=== PATIENT | male | born 1965 | race African-American/Black ===

== ENCOUNTER 2020-07-21 03:28 | Inpatient (IN) ==
[2020-07-21] MEDS ORDERED: SODIUM CHLORIDE 0.9% 1000ML 1,000 ML IV ONE ×2 (03:44→04:56)
[2020-07-21] MEDS ORDERED: ACETAMINOPHEN 500 MG TAB PO STA (03:47)
--- NOTE | 2020-07-21 03:49 | Emergency Department Note ---
Impression & Plan Fever, Acute UTI (urinary tract infection), Immunocompromised ED Provider Note Name: LUCHO RANGEL Age: 54 Sex: M Arrives Via: Ambulance Informant: Patient, ED Provider: Andrew Mullins MD Chief Complaint: Fever Impression: Fever Acute UTI Immunocompromised Medical Decision Makin yr old male with bladder CA s/p resection and on chemo with bilateral nephrostomy tubes as well as history HTN, DMII. He has had fevers for the last day now, is dehydrated appearing and ill appearing. Fluid resus with 2 L NSS bolus as well as empiric abx after cultures obtained. He was given zosyn/vanco. HR coming down and BP&Lactate OK. He has no abdominal TTP nor evidence meningitis. Lungs are clear and CXR OK. UA from nephrostomy concerning for infection. Hospitalist in to evaluate further. Triage/Nursing Notes reviewed by Me Additional history obtained from Differentials:Viral syndrome, otitis, pharyngitis, pneumonia, influenza, meningitis, urinary tract infection, sepsis, bacteremia, as well as other pat hologies. Vital Signs: reviewed and remarkable for fever, tachy Interventions: NSS bolus 2L IV, Tylenol PO, ZOsyn IV, Vanco IV Labs:Reviewed and remarkable for WBC 15 Imaging:X ray results are stated below per my interpretation: Chest: 1 view: No infiltrate, no effusion, normal cardiac border. EKG:Per My Interpretation: Indication Sepsis: Sinus Tach 117 bpm, qtc 451. No Ectopy. No Ischemia. No previous for comparison Cardiac/Tele Monitoring: Cardiac Monitoring: An Order was placed for continuous cardiac monitoring. The monitor shows a rate of 110 with a sinus tachy rhythm. Consults:Dr Page WILLIS Hospitalist Plan: Disposition:Hospitalization. Condition: Good History of Present Illness:54 yr old male arrives for evaluation of fever. Patient with known bladder CA s/p bladder tumor resection (via cysto) last week and chemo over the last week. He has bilateral nephrostomy tubes in place as well. He notes he was feeling well until yesterday morning when he developed fevers and chills. Associated with nausea, fatigue and weakness. Worsening throughout the day. Worse with exertion, better with rest. Percocet helps with body aches and pains. He went to [facility] earlier in evening and due to issues with accessing port he d/c'd himself and came via EMS to this ED for further evaluation. States currently pain is control but that he feels very tired. Notes that he started having some bloody nephrostomy fluid this evening after moving around a bunch. He has been having blood in urine on and off for several days as well. Denies chest pain, sob, syncope, headache, neck stiffness, abdominal pain, leg swelling, nor other symptoms. No trauma nor injuries. He has his cancer treatment in [place]. ROS: See above HPI for pertinent positives & negatives. A total of 10 systems reviewed and were otherwise negative. Past Medical History:HTN, DMII, Bladder CA Past Surgical History:Thumb surgery, nephrostomy tubes, bladder tumor resection Family History:DMII Social History:Lives with , employed, non-smoker Home Medications:amlodipine, diazepam, lisinopril, zofran, oxybutynin, percocet, flomax, tizanidine Allergies:NKDA Vitals:Blood Pressure: 135/89, Pulse 115, RR 22, T 38.1C, O2 97% on RA Physical Exam: GENERAL: Patient is tired and ill appearing and in mild distress. Dehydrated appearing EYES: No scleral icterus, unremarkable pupils. ENT: Mucous membranes DRy, no nasal congestion. NECK: No masses appreciated, nomeningismus, trachea is midline. CHEST: Port right upper chest no swelling nor eythema RESPIRATORY: No dyspnea. Clear to auscultation and equal bilaterally. No wheeze, no rhonchi. CARDIOVASCULAR: Tachy.No murmurs, rubs, gallops appreciated. GASTROINTESTINAL: Abdomen soft, non-tender, no peritonitis.Bowel sounds positive.No masses appreciated. BACK: No midline tenderness, bilateral nephrostomy tubes EXTREMITIES: Normal motion all extremities, no cyanosis, no edema. NEUROLOGIC: Alert and oriented, no acute motor or sensory deficits, no focal weakness, cranial nerves grossly intact. SKIN: No rash, no jaundice, no diaphoresis. PSYCH: Appropriate GCS: 15 ED Course: Times/Reassessments: Improvement in symptoms and HR with fluids. Agreeable to hospitalization Andrew Mullins MD Past Med/Surg History Social History Smoking Status: Never smoker Preferred Language: Citizen Of [place] Allergies Allergies Allergy/AdvReac Type Severity Reaction Status Date / Time Iodinated Contrast Media Allergy Severe Unknown Verified 07/21/20 05:23 Home Meds Home Medications Medication Instructions Recorded Confirmed amlodipine 10 mg PO DAILY 07/21/20 07/21/20 diazepam 2.5 mg SC BID PRN 07/21/20 07/21/20 lisinopril 40 mg PO DAILY 07/21/20 07/21/20 metoprolol tartrate 25 mg PO DAILY 07/21/20 07/21/20 ondansetron HCl 8 mg PO BID 07/21/20 07/21/20 oxybutynin chloride 10 mg PO DAILY 07/21/20 07/21/20 oxycodone-acetaminophen 1 tab PO Q4 07/21/20 07/21/20 tamsulosin 0.4 mg PO BID 07/21/20 07/21/20 tizanidine 4 mg PO HS 07/21/20 07/21/20 Results & Data (ED) Vital Signs Vital Signs - 24 hr 07/21/20 03:32 07/21/20 03:33 07/21/20 05:05 Temperature 38.1 C H Temperature Source Oral Pulse Rate 106 H 115 H Pulse Rate [Apical] 93 H Pulse Rhythm Regular Pulse Rhythm [Apical] Regular Pulse Strength Normal Respiratory Rate 13 22 16 Respiratory Effort / Characteristics Non-Labored Spontaneous Non-Labored Spontaneous Respiratory Depth Normal Normal Respiratory Pattern Regular Blood Pressure 135/89 135/89 Blood Pressure [Left Arm] 134/80 Blood Pressure Mean 104 104 Blood Pressure Mean [Left Arm] 98 Blood Pressure Position Sitting Blood Pressure Position [Left Arm] Lying Pulse Oximetry 97 97 Oxygen Delivery Method Room Air Room Air Sepsis Recent Fever Within 48 Hours Yes Sepsis New/Unexplained Change in Mental Status N/A Sepsis Action Taken by Nursing Physician Notified Laboratory Data Result diagrams: 07/21/20 04:03 07/21/20 04:03 Lab Results 07/21/20 07/21/20 07/21/20 Range/Units 04:03 04:03 04:03 WBC 15.22 H (4.8-10.8) K/uL RBC 4.10 L (4.7-6.1) M/uL Hgb 12.2 L (14.0-18.0) g/dL Hct 34.7 L (42-52) % MCV 84.6 (80-100) fL MCH 29.8 (25-34) pg MCHC 35.2 (32-36) g/dL RDW Std Deviation 45.7 (36.4-46.3) fL RDW Coeff of Lamar 14.7 H (11.5-14.5) % Plt Count 218 (130-400) K/uL MPV 8.9 (7.4-10.4) fL Immature Gran % (Auto) 0.2 % Neut % (Auto) 93.2 % Lymph % (Auto) 5.5 % [place] % (Auto) 0.9 % Eos % (Auto) 0.1 % Baso % (Auto) 0.1 % Neut # (Auto) 14.20 H (1.4-6.5) K/uL Lymph # (Auto) 0.83 L (1.2-3.4) K/uL [place] # (Auto) 0.14 (0.11-0.59) K/uL Eos # (Auto) 0.01 (0-0.5) K/uL Baso # (Auto) 0.01 (0-0.2) K/uL Immature Gran # (Auto) 0.03 H (0.00-0.02) K/uL PT 10.4 (9.0-12.0) Seconds INR 1.0 (0.9-1.1) Sodium (136-145) mmol/L Potassium (3.5-5.1) mmol/L Chloride (98-107) mmol/L Carbon Dioxide (21-32) mmol/L Anion Gap (3-11) BUN (7-18) mg/dl Creatinine (0.6-1.4) mg/dl Est Cr Clr Drug Dosing ml/min Est GFR ( Amer) Est GFR (Non-Af Amer) BUN/Creatinine Ratio (10-20) Glucose (70-99) mg/dl Lactate 0.9 (0.4-2.0) mmol/L Calcium (8.5-10.1) mg/dl Magnesium (1.8-2.4) mg/dl Total Bilirubin (0.2-1) mg/dl Direct Bilirubin (0-0.2) mg/dl AST (15-37) U/L ALT (12-78) U/L Alkaline Phosphatase (45-117) U/L Troponin I (0-0.045) ng/ml Total Protein (6.4-8.2) gm/dl Albumin (3.4-5.0) gm/dl Lipase (73-393) U/L Procalcitonin (0-0.5) ng/ml Urine Color Urine Appearance (Clear) Urine pH (4.5-7.5) Ur Specific [place] (1.000-1.030) Urine Protein (Negative) Urine Glucose (UA) (Negative) Urine Ketones (Negative) Urine Blood (Negative) Urine Nitrite (Negative) Urine Bilirubin (Negative) Urine Urobilinogen (Negative) Ur Leukocyte Esterase (Negative) Urine RBC (0-4) /hpf Urine WBC (0-5) /hpf Ur Epithelial Cells (0-5) /lpf Urine Bacteria (Negative) COVID-19 Eval Order SARS-CoV-2, RNA, NAAT (NEGATIVE) 07/21/20 07/21/20 07/21/20 Range/Units 04:03 04:03 04:37 WBC (4.8-10.8) K/uL RBC (4.7-6.1) M/uL Hgb (14.0-18.0) g/dL Hct (42-52) % MCV (80-100) fL MCH (25-34) pg MCHC (32-36) g/dL RDW Std Deviation (36.4-46.3) fL RDW Coeff of Lamar (11.5-14.5) % Plt Count (130-400) K/uL MPV (7.4-10.4) fL Immature Gran % (Auto) % Neut % (Auto) % Lymph % (Auto) % [place] % (Auto) % Eos % (Auto) % Baso % (Auto) % Neut # (Auto) (1.4-6.5) K/uL Lymph # (Auto) (1.2-3.4) K/uL [place] # (Auto) (0.11-0.59) K/uL Eos # (Auto) (0-0.5) K/uL Baso # (Auto) (0-0.2) K/uL Immature Gran # (Auto) (0.00-0.02) K/uL PT (9.0-12.0) Seconds INR (0.9-1.1) Sodium 135 L (136-145) mmol/L Potassium 3.5 (3.5-5.1) mmol/L Chloride 102 (98-107) mmol/L Carbon Dioxide 26 (21-32) mmol/L Anion Gap 7.0 (3-11) BUN 15 (7-18) mg/dl Creatinine 0.91 (0.6-1.4) mg/dl Est Cr Clr Drug Dosing 102.4 ml/min Est GFR ( Amer) 108.8 Est GFR (Non-Af Amer) 93.9 BUN/Creatinine Ratio 16.5 (10-20) Glucose 175 H (70-99) mg/dl Lactate (0.4-2.0) mmol/L Calcium 8.3 L (8.5-10.1) mg/dl Magnesium 1.8 (1.8-2.4) mg/dl Total Bilirubin 0.8 (0.2-1) mg/dl Direct Bilirubin 0.2 (0-0.2) mg/dl AST 6 L (15-37) U/L ALT 22 (12-78) U/L Alkaline Phosphatase 71 (45-117) U/L Troponin I < 0.015 (0-0.045) ng/ml Total Protein 7.2 (6.4-8.2) gm/dl Albumin 3.0 L (3.4-5.0) gm/dl Lipase 196 (73-393) U/L Procalcitonin 0.38 (0-0.5) ng/ml Urine Color Yellow Urine Appearance Cloudy A (Clear) Urine pH 7.0 (4.5-7.5) Ur Specific [place] 1.025 (1.000-1.030) Urine Protein 2+ H (Negative) Urine Glucose (UA) Negative (Negative) Urine Ketones Negative (Negative) Urine Blood 3+ H (Negative) Urine Nitrite Positive A (Negative) Urine Bilirubin Negative (Negative) Urine Urobilinogen Negative (Negative) Ur Leukocyte Esterase 1+ H (Negative) Urine RBC >30 H (0-4) /hpf Urine WBC 10-30 H (0-5) /hpf Ur Epithelial Cells 0-5 (0-5) /lpf Urine Bacteria 2+ H (Negative) COVID-19 Eval Order SARS-CoV-2, RNA, NAAT (NEGATIVE) 07/21/20 07/21/20 Range/Units 04:37 04:37 WBC (4.8-10.8) K/uL RBC (4.7-6.1) M/uL Hgb (14.0-18.0) g/dL Hct (42-52) % MCV (80-100) fL MCH (25-34) pg MCHC (32-36) g/dL RDW Std Deviation (36.4-46.3) fL RDW Coeff of Lamar (11.5-14.5) % Plt Count (130-400) K/uL MPV (7.4-10.4) fL Immature Gran % (Auto) % Neut % (Auto) % Lymph % (Auto) % [place] % (Auto) % Eos % (Auto) % Baso % (Auto) % Neut # (Auto) (1.4-6.5) K/uL Lymph # (Auto) (1.2-3.4) K/uL [place] # (Auto) (0.11-0.59) K/uL Eos # (Auto) (0-0.5) K/uL Baso # (Auto) (0-0.2) K/uL Immature Gran # (Auto) (0.00-0.02) K/uL PT (9.0-12.0) Seconds INR (0.9-1.1) Sodium (136-145) mmol/L Potassium (3.5-5.1) mmol/L Chloride (98-107) mmol/L Carbon Dioxide (21-32) mmol/L Anion Gap (3-11) BUN (7-18) mg/dl Creatinine (0.6-1.4) mg/dl Est Cr Clr Drug Dosing ml/min Est GFR ( Amer) Est GFR (Non-Af Amer) BUN/Creatinine Ratio (10-20) Glucose (70-99) mg/dl Lactate (0.4-2.0) mmol/L Calcium (8.5-10.1) mg/dl Magnesium (1.8-2.4) mg/dl Total Bilirubin (0.2-1) mg/dl Direct Bilirubin (0-0.2) mg/dl AST (15-37) U/L ALT (12-78) U/L Alkaline Phosphatase (45-117) U/L Troponin I (0-0.045) ng/ml Total Protein (6.4-8.2) gm/dl Albumin (3.4-5.0) gm/dl Lipase (73-393) U/L Procalcitonin (0-0.5) ng/ml Urine Color Urine Appearance (Clear) Urine pH (4.5-7.5) Ur Specific [place] (1.000-1.030) Urine Protein (Negative) Urine Glucose (UA) (Negative) Urine Ketones (Negative) Urine Blood (Negative) Urine Nitrite (Negative) Urine Bilirubin (Negative) Urine Urobilinogen (Negative) Ur Leukocyte Esterase (Negative) Urine RBC (0-4) /hpf Urine WBC (0-5) /hpf Ur Epithelial Cells (0-5) /lpf Urine Bacteria (Negative) COVID-19 Eval [facility] SARS-CoV-2, RNA, NAAT NEGATIVE (NEGATIVE) Administered Medications Vancomycin HCl 1,750 mg/ (Sodium Chloride) 535 mls @ 200 mls/hr IV NOW ONE Stop: 07/21/20 07:29 Last Admin: 07/21/20 05:07 Dose: 200 mls/hr Documented by: [id number] Discontinued Medications Acetaminophen (Acetaminophen 500 Mg Tab) 1,000 mg PO NOW STA Stop: 07/21/20 03:48 Last Admin: 07/21/20 04:12 Dose: 1,000 mg Documented by: [id number] Sodium Chloride (Nss 1000ml) 1,000 mls @ 999 mls/hr IV .Q1H1M ONE Stop: 07/21/20 04:44 Last Infusion: 07/21/20 05:34 Dose: 0 mls/hr Documented by: [id number] Admin: 07/21/20 04:12 Dose: 999 mls/hr Documented by: [id number] Piperacillin Sod/Tazobactam Sod (Zosyn) 4.5 gm in 120 mls @ 240 mls/hr IV NOW ONE Stop: 07/21/20 05:18 Last Infusion: 07/21/20 05:41 Dose: 0 mls/hr Documented by: [id number] Admin: 07/21/20 05:07 Dose: 240 mls/hr Documented by: [id number] Sodium Chloride (Nss 1000ml) 1,000 mls @ 999 mls/hr IV .Q1H1M ONE Stop: 07/21/20 05:56 Last Infusion: 07/21/20 06:19 Dose: 0 mls/hr Documented by: [id number] Admin: 07/21/20 05:13 Dose: 999 mls/hr Documented by: [id number] Discharge Plan Visit Data Chief Complaint: Hematuria Stated Complaint: FEVER/HEMATURIA ED Provider: Andrew Mullins Discharge Problem: Fever, Acute UTI (urinary tract infection), Immunocompromised Forms Stand Alone Forms: [facility] Prescriptions Prescriptions: No Action tizanidine 4 mg tablet 4 mg PO HS RF: 0 ondansetron HCl 8 mg tablet 8 mg PO BID RF: 0 oxycodone-acetaminophen 5-325 mg tablet 1 tab PO Q4 RF: 0 diazepam 2.5 mg kit 2.5 mg SC BID PRN (Reason: Muscle Spasm) RF: 0 lisinopril 40 mg tablet 40 mg PO DAILY RF: 0 oxybutynin chloride 10 mg tablet extended release 24hr 10 mg PO DAILY RF: 0 tamsulosin 0.4 mg capsule 0.4 mg PO BID RF: 0 amlodipine 10 mg tablet 10 mg PO DAILY RF: 0 metoprolol tartrate 50 mg tablet 25 mg PO DAILY RF: 0
[2020-07-21 04:14] LABS: Basophils # (auto) 0.01 K/uL (0-0.2); Basophils % (auto) 0.1 %; Eosinophils # (auto) 0.01 K/uL (0-0.5); Eosinophils % (auto) 0.1 %; Hematocrit (blood only) 34.7 % (42-52); Hemoglobin 12.2 g/dL (14.0-18.0); Immature Granulocytes # (auto) 0.03 K/uL (0.00-0.02); Immature Granulocytes % (auto) 0.2 %; Lymphocytes # (auto) 0.83 K/uL (1.2-3.4); Lymphocytes % (auto) 5.5 %; Mean Corpuscular Hemoglobin 29.8 pg (25-34); Mean Corpuscular Hgb Conc 35.2 g/dL (32-36); Mean Corpuscular Volume 84.6 fL (80-100); Mean Platelet Volume 8.9 fL (7.4-10.4); Monocytes # (auto) 0.14 K/uL (0.11-0.59); Monocytes % (auto) 0.9 %; Neutrophils % (auto) 93.2 %; Platelet Count 218 K/uL (130-400); RDW Coefficient of Variation 14.7 % (11.5-14.5); RDW Standard Deviation 45.7 fL (36.4-46.3); White Blood Count 15.22 K/uL (4.8-10.8)
[2020-07-21 04:22] LABS: Prothrombin Time 10.4 Seconds (9.0-12.0)
[2020-07-21 04:31] LABS: Alanine Aminotransferase 22 U/L (12-78); Aspartate Aminotransferase 6 U/L (15-37); BUN Creatinine Ratio 16.5 (10-20); Bilirubin Direct 0.2 mg/dl (0-0.2); Blood Urea Nitrogen 15 mg/dl (7-18); Calcium 8.3 mg/dl (8.5-10.1); Carbon Dioxide 26 mmol/L (21-32); Chloride 102 mmol/L (98-107); Creatinine Clr Calc Pharmacy 102.4 ml/min; Est GFR (African American) 108.8; Est GFR (Non-African American) 93.9; Glucose 175 mg/dl (70-99); Lipase 196 U/L (73-393); Magnesium 1.8 mg/dl (1.8-2.4); Potassium 3.5 mmol/L (3.5-5.1); Sodium 135 mmol/L (136-145)
[2020-07-21 04:36] LABS: Alkaline Phosphatase 71 U/L (45-117); Bilirubin,Total 0.8 mg/dl (0.2-1); Total Protein 7.2 gm/dl (6.4-8.2); Troponin I < 0.015 ng/ml (0-0.045)
[2020-07-21] MEDS ORDERED: VANCOMYCIN HCL 1,750 MG in SODIUM CHLORIDE 0.9% 500 ML IV ONE (04:49)
[2020-07-21] MEDS ORDERED: PIPERACILL/TAZOBAC CONSULT ACTIVE PRN ×2 (04:49→07:24)
[2020-07-21] MEDS ORDERED: PIPERACILLIN/TAZOBACTAM 4.5 GM/120 ML BAG IV ONE (04:49)
[2020-07-21] MEDS ORDERED: VANCOMYCIN CONSULT ACTIVE PRN ×2 (04:49→07:24)
[2020-07-21 05:17] LABS: Appearance Urine Cloudy (Clear); Bilirubin Urine Negative (Negative); Blood Urine 3+ (Negative); Color Urine Yellow; Glucose Urine UA Negative (Negative); Ketones Urine Negative (Negative); Leukocyte Esterase Urine 1+ (Negative); Nitrite Urine Positive (Negative); Protein Urine 2+ (Negative); Specific Gravity Urine 1.025 (1.000-1.030); Urobilinogen Urine Negative (Negative)
[2020-07-21 05:20] LABS: Bacteria Urine 2+ (Negative); Epithelial Cell Urine 0-5 /lpf (0-5); RBC Urine >30 /hpf (0-4)
--- NOTE | 2020-07-21 06:06 | History & Physical Report ---
Date of Service July 21, 2020 Assessment & Plan (1) Gross hematuria: Gross hematuria/bladder cancer/bilateral nephrostomy tubes- Temperature to 100.6 F Last chemo treatment was on Tuesday, 07/18 Follow urine culture and sensitivity Empiric vancomycin IV and Zosyn IV NSS + KCl 20 mEq at 100 mils per hour Continue diazepam, oxybutynin chloride, tamsulosin, tizanidine. Acetaminophen 650 mg p.o. every 6 hours as needed mild pain or fever Oxycodone/acetaminophen 5/325 p.o. every 4 hours as needed moderate pain Order CT abdomen pelvis without contrast to check for tube placement Contact [facility] in [place] to coordinate care Present on Admission?: Yes (2) Bladder cancer: See above Present on Admission?: Yes (3) Nephrostomy tube bleed: See above Present on Admission?: Yes (4) Hypertension: Hold lisinopril and amlodipine Change metoprolol tartrate 25 mg p.o. daily to twice daily Present on Admission?: Yes (5) Diabetes: Placed on Accu-Cheks before meals and at bedtime. Patient reportedly does not want insulin for coverage. Reportedly takes an [id number] remedy, which his significant other will bring for pharmacy to identify before administration Present on Admission?: Yes History of Present Illness Chief Complaint: Per his significant other, who relates HPI and review of systems, approximately 24 hours ago the patient started to develop dizziness, increased temperature, fatigue and generalized malaise. Primary Care Provider: NO PCP The patient is a 54-year-old male with a past medical history including bladder cancer status post resection with bilateral nephrostomy tubes on chemo, hypertension, diabetes mellitus, and bladder spasm. He has undergone treatment at the [facility] in [place], and communication will be coordinated with them. He presents with symptoms as noted above. She reports that he is always had right sided pain, which is where his bladder lesion was, and reports that this pain is worse than usual. She reports that the last 2 times he urinated yesterday he had gross blood, which has been present early on before beginning chemotherapy, but this is the first time he has had gross blood since being on chemotherapy and post procedure. His last chemotherapy was 3 days ago. Allergies Allergy/AdvReac Type Severity Reaction Status Date / Time Iodinated Contrast Media Allergy Severe Unknown Verified 07/21/20 05:23 Home Medications Medication Instructions Recorded Confirmed Type amlodipine 10 mg PO DAILY 07/21/20 07/21/20 History diazepam 2.5 mg OK BID PRN 07/21/20 07/21/20 History lisinopril 40 mg PO DAILY 07/21/20 07/21/20 History metoprolol tartrate 25 mg PO DAILY 07/21/20 07/21/20 History ondansetron HCl 8 mg PO BID 07/21/20 07/21/20 History oxybutynin chloride 10 mg PO DAILY 07/21/20 07/21/20 History oxycodone-acetaminophen 1 tab PO Q4 07/21/20 07/21/20 History tamsulosin 0.4 mg PO BID 07/21/20 07/21/20 History tizanidine 4 mg PO HS 07/21/20 07/21/20 History Past Med/Surg History Social History Smoking Status: Never smoker Preferred Language: [place] Review of Systems Review of Systems: Per significant other, the patient denies chest pain, palpitations, shortness of breath, dyspnea on exertion, cough, lower extremity swelling, sore throat, chills, sweats, nausea, vomiting, diarrhea , constipation, abdominal pain, pelvic pain, blood in stool, lightheadedness, dizziness, headache, memory loss, loss of consciousness, rash, abnormal bruising, imbalance, focal or generalized weakness, numbness or tingling in arms or legs, neck pain, or night sweats. The review of systems is otherwise negative other than for that already noted above, and at least 10 systems have been reviewed. Physical Exam Physical Exam: The patient is asleep after receiving pain medications, well developed and well nourished, normocephalic and atraumatic, lying in bed and in no acute distress. HEENT--PERRL, EOMI, mucous membranes and oropharynx normal Neck--supple. No JVD. No bruits. Thyroid normal, trachea midline, no adenopathy. Heart--normal S1 and S2. No murmurs, rubs or gallops. Lungs--clear bilaterally, no respiratory distress, no accessory muscle use. Abdomen--normal bowel sounds and soft. Nontender. Nondistended. Extremities--no cyanosis or clubbing. No edema. Dermatologic--nephrostomy tube sites intact Neurologic--cranial nerves II through XII grossly intact. Rheumatologic--limited exam Psychiatric--limited exam Results & Data Results & Data ([facility]) Vital Signs (Past 12 Hours) Vital Signs Temp Pulse Pulse Resp BP BP Pulse Ox 07/21/20 05:05 93 H 16 134/80 97 07/21/20 03:33 100.6 F H 115 H 22 135/89 97 07/21/20 03:32 106 H 13 135/89 Laboratory Results Laboratory Results WBC 15.22 K/uL (4.8-10.8) H 07/21/20 04:03 RBC 4.10 M/uL (4.7-6.1) L 07/21/20 04:03 Hgb 12.2 g/dL (14.0-18.0) L 07/21/20 04:03 Hct 34.7 % (42-52) L 07/21/20 04:03 MCV 84.6 fL (80-100) 07/21/20 04:03 MCH 29.8 pg (25-34) 07/21/20 04:03 MCHC 35.2 g/dL (32-36) 07/21/20 04:03 RDW Std Deviation 45.7 fL (36.4-46.3) 07/21/20 04:03 RDW Coeff of Lamar 14.7 % (11.5-14.5) H 07/21/20 04:03 Plt Count 218 K/uL (130-400) 07/21/20 04:03 MPV 8.9 fL (7.4-10.4) 07/21/20 04:03 Immature Gran % (Auto) 0.2 % 07/21/20 04:03 Neut % (Auto) 93.2 % 07/21/20 04:03 Lymph % (Auto) 5.5 % 07/21/20 04:03 [place] % (Auto) 0.9 % 07/21/20 04:03 Eos % (Auto) 0.1 % 07/21/20 04:03 Baso % (Auto) 0.1 % 07/21/20 04:03 Neut # (Auto) 14.20 K/uL (1.4-6.5) H 07/21/20 04:03 Lymph # (Auto) 0.83 K/uL (1.2-3.4) L 07/21/20 04:03 [place] # (Auto) 0.14 K/uL (0.11-0.59) 07/21/20 04:03 Eos # (Auto) 0.01 K/uL (0-0.5) 07/21/20 04:03 Baso # (Auto) 0.01 K/uL (0-0.2) 07/21/20 04:03 Immature Gran # (Auto) 0.03 K/uL (0.00-0.02) H 07/21/20 04:03 PT 10.4 Seconds (9.0-12.0) 07/21/20 04:03 INR 1.0 (0.9-1.1) 07/21/20 04:03 Sodium 135 mmol/L (136-145) L 07/21/20 04:03 Potassium 3.5 mmol/L (3.5-5.1) 07/21/20 04:03 Chloride 102 mmol/L (98-107) 07/21/20 04:03 Carbon Dioxide 26 mmol/L (21-32) 07/21/20 04:03 Anion Gap 7.0 (3-11) 07/21/20 04:03 BUN 15 mg/dl (7-18) 07/21/20 04:03 Creatinine 0.91 mg/dl (0.6-1.4) 07/21/20 04:03 Est Cr Clr Drug Dosing 102.4 ml/min 07/21/20 04:03 Est GFR ( Amer) 108.8 07/21/20 04:03 Est GFR (Non-Af Amer) 93.9 07/21/20 04:03 BUN/Creatinine Ratio 16.5 (10-20) 07/21/20 04:03 Glucose 175 mg/dl (70-99) H 07/21/20 04:03 Lactate 0.9 mmol/L (0.4-2.0) 07/21/20 04:03 Calcium 8.3 mg/dl (8.5-10.1) L 07/21/20 04:03 Magnesium 1.8 mg/dl (1.8-2.4) 07/21/20 04:03 Total Bilirubin 0.8 mg/dl (0.2-1) 07/21/20 04:03 Direct Bilirubin 0.2 mg/dl (0-0.2) 07/21/20 04:03 AST 6 U/L (15-37) L 07/21/20 04:03 ALT 22 U/L (12-78) 07/21/20 04:03 Alkaline Phosphatase 71 U/L (45-117) 07/21/20 04:03 Troponin I < 0.015 ng/ml (0-0.045) 07/21/20 04:03 Total Protein 7.2 gm/dl (6.4-8.2) 07/21/20 04:03 Albumin 3.0 gm/dl (3.4-5.0) L 07/21/20 04:03 Lipase 196 U/L (73-393) 07/21/20 04:03 Procalcitonin 0.38 ng/ml (0-0.5) 07/21/20 04:03 Urine Color Yellow 07/21/20 04:37 Urine Appearance Cloudy (Clear) A 07/21/20 04:37 Urine pH 7.0 (4.5-7.5) 07/21/20 04:37 Ur Specific [place] 1.025 (1.000-1.030) 07/21/20 04:37 Urine Protein 2+ (Negative) H 07/21/20 04:37 Urine Glucose (UA) Negative (Negative) 07/21/20 04:37 Urine Ketones Negative (Negative) 07/21/20 04:37 Urine Blood 3+ (Negative) H 07/21/20 04:37 Urine Nitrite Positive (Negative) A 07/21/20 04:37 Urine Bilirubin Negative (Negative) 07/21/20 04:37 Urine Urobilinogen Negative (Negative) 07/21/20 04:37 Ur Leukocyte Esterase 1+ (Negative) H 07/21/20 04:37 Urine RBC >30 /hpf (0-4) H 07/21/20 04:37 Urine WBC 10-30 /hpf (0-5) H 07/21/20 04:37 Ur Epithelial Cells 0-5 /lpf (0-5) 07/21/20 04:37 Urine Bacteria 2+ (Negative) H 07/21/20 04:37 COVID-19 Eval [facility] 07/21/20 04:37 SARS-CoV-2, RNA, NAAT NEGATIVE (NEGATIVE) 07/21/20 04:37 Code Status & VTE Plan Code Status Full code VTE Prophylaxis Plan VTE Prophylaxis will be ordered: Yes PG Care Time/CCT Total # of Minutes Spent Total Time Spent with Patient: Total time spent is greater than 50% in coordination of care (as documented) at patient's floor/unit and/or counseling patient: Coding Level of Care Code 19596 Initial Inpt Care Lvl 3 Diagnoses Gross hematuria R31.0 Bladder cancer C67.9 Nephrostomy tube bleed T83.83XA Hypertension I10 Diabetes E11.9
--- NOTE | 2020-07-21 06:51 | XRay Report ---
XR chest 1V portable CLINICAL HISTORY: fever, sepsis COMPARISON STUDY: No previous studies for comparison. FINDINGS: Lung volumes are normal. Lungs are clear. There is no pneumothorax or pleural effusion. Car diac size is normal. Mediastinal contours are normal. There is no evidence for pulmonary edema. Right sided [id number] is in place. IMPRESSION: No acute cardiopulmonary findings. ACT 112: Negative or not required by law. Electronically signed by: Fredo Patrick M.D. 07/21/2020 6:49 AM
[2020-07-21] MEDS ORDERED: DEXTROSE 50% 50 ML SYRINGE IV PRN (07:24)
[2020-07-21] MEDS ORDERED: ACETAMINOPHEN 325 MG TAB PO PRN (07:24)
[2020-07-21] MEDS ORDERED: CARBOHYDRATES FOR HYPOGLYCEMIA PO PRN (07:24)
[2020-07-21] MEDS ORDERED: Heparin IV Adult Wt-Based Low-Dose *NO* Bolus Protocol IV SCH (07:24)
[2020-07-21] MEDS ORDERED: GLUCOSE 10 TABS/TUBE PO PRN (07:24)
[2020-07-21] MEDS ORDERED: GLUCOSE 40% GEL 15 GM TUBE PO PRN (07:24)
[2020-07-21] MEDS ORDERED: GLUCAGON FOR INJ 1 MG VIAL SQ PRN (07:24)
[2020-07-21] MEDS ORDERED: diazePAM RECTAL 2.5 MG GEL PR PRN (07:24)
--- NOTE | 2020-07-21 07:32 | CT Scan Report ---
CT OF THE ABDOMEN AND PELVIS WITHOUT CONTRAST CLINICAL HISTORY: gross hematuria, b/l nephrostomy tubes, bladder CA COMPARISON STUDY: No previous studies for comparison. TECHNIQUE: Axial images of the abdomen and pelvis were obtained without IV contrast. Images were revi ewed in the axial, sagittal, and coronal planes. Automated exposure control was utilized for the kianna dy. A dose lowering technique was utilized adhering to the principles of ALARA. FINDINGS: Visualized portions of the lower chest demonstrate an indeterminate 6 mm subpleural right l ower lobe nodule on image 14 of 486. No pneumatosis, free air or portal venous gas is present. Evalua tion of the abdomen and pelvis is suboptimal on this unenhanced examination. Unenhanced images of the liver, spleen, adrenal glands and pancreas are unremarkable. There is no evidence for a bowel obstru ction. The appendix is normal. No abdominal or pelvic lymphadenopathy is present. Bilateral percutane ous nephrostomy tubes are in place. There is no hydronephrosis. There is trace right perinephric flui d. There is also a small lobulated density along the cortex of the lower pole of the right kidney and adjacent to the nephrostomy tube. This measures 1.6 cm. There is mild infiltration adjacent to both ureters. There is moderate dilatation of both ureters. No ureteral calculi are present. Moderate blad michael wall thickening is noted. There is infiltration adjacent to the bladder and prostate. Prostate is moderately enlarged. Sensitivity for detection of urothelial lesions is diminished on this unenhance d exam. No suspicious osseous lesions are present. IMPRESSION: 1. Bilateral nephrostomy tubes in place. No hydronephrosis. Dilatation of the distal ureters. Trace r ight perinephric fluid. 1.6 cm lobulated density along the cortex of the lower pole of the right kidn ey adjacent to the nephrostomy tube. This may reflect a small amount of hemorrhage or an indeterminat e renal lesion. Comparison with prior imaging studies would be of benefit. If no prior exams, imaging follow-up is recommended to ensure resolution. 2. Moderate bladder wall thickening. Moderate enlargement of the prostate. Infiltration adjacent to t he ureters, bladder and prostate. This could be correlated with urinalysis to exclude an infectious p rocess. 3. Indeterminate 6 mm right lower lobe pulmonary nodule. Correlation with prior imaging studies, if a vailable, is recommended. In the absence of prior studies, a follow-up chest CT in 6 months is recomm ended. ACT 112: Negative or not required by law. Electronically signed by: Fredo Patrick M.D. 07/21/2020 7:30 AM
--- NOTE | 2020-07-21 08:46 | Pharmacy Report ---
Pharmacy Abx Initial Consult - Date of Service July 21, 2020 - Pharmacy Dosing Scope Date of Consult: 07/21/20 Consultation requested by: Dr. Abel Pharmacy is consulted to initiate Vancomycin + Zosyn IV dosing therapy, order appropriate labs and adjust drug dose/frequency. - Subjective The patient is a 54 year old M admitted on 07/21/20 06:04. - Objective Height: 6 ft 1 in Weight: 84 kg Vital Signs (Past 12hrs): Vital Signs Temp Pulse Pulse Resp BP BP Pulse Ox 07/21/20 07:43 37 C 93 H 95 H 18 143/88 H 97 07/21/20 05:05 93 H 16 134/80 97 07/21/20 03:33 38.1 C H 115 H 22 135/89 97 07/21/20 03:32 106 H 13 135/89 Lab Results (24hrs): Laboratory Tests (24 Hours) 07/21/20 07/21/20 07/21/20 04:03 04:03 04:03 WBC 15.22 H Neut # (Auto) 14.20 H Creatinine 0.91 Est Cr Clr Drug Dosing 102.4 Procalcitonin 0.38 Micro Results: 07/21/20 04:37 Urine Culture - Pending Urine,Clean Catch 07/21/20 04:08 Aerobic Blood Culture - Pending Blood Anaerobic Blood Culture - Pending 07/21/20 04:03 Aerobic Blood Culture - Pending Blood Anaerobic Blood Culture - Pending - Risk Factors for Resistance * Immunocompromised (chemotherapy) * Antimicrobial use within the last 90 days: Macrobid 100 mg PO BID x 7 days - Assessment & Plan Assessment 54 year old M admitted this morning secondary to fever and fatigue * PMHx significant for bladder cancer s/p resection w/ bilateral nephrostomy tubes on chemotherapy, hypertension, diabetes mellitus, bladder spasms * Last chemo treatment was on 07/18/20 * [place] [address], procalcitonin of 0.38 ng/mL. Renal function appears stable. * Urine and blood cultures are pending. Started on Vancomycin and Zosyn. Plan Vancomycin + Zosyn for treatment of complicated UTI Vancomycin IV * Patient meets criteria for vancomycin AUC dosing nomogram * AUC/JOSE is the preferred PK/PD target for vancomycin * Target AUC/JOSE = 400-600 * AUC guided dosing is effective and associated with decreased risk of nephrotoxicity * Loading dose: 1750 mg (21 mg/kg) * Maintenance dose: 1000 mg IV (12 mg/kg) every 8 hours Piperacillin/tazobactam * 4.5 g bolus administered over 30 minutes, then 3.375 g IV extended infusion every 8 hours for CrCl greater than 20 mL/min Pharmacy will continue to follow and will adjust dose/frequency as necessary. Thank you.
[2020-07-21] MEDS: OXYBUTYNIN CHLORIDE XL 5 MG TABCR PO SCH (09:35)
[2020-07-21] MEDS: TAMSULOSIN HCL 0.4 MG CAP PO SCH ×2 (09:35→20:17)
[2020-07-21] MEDS: METOPROLOL TARTRATE 25 MG TAB PO SCH ×2 (09:35→20:18)
[2020-07-21] MEDS: ONDANSETRON 8MG OD TAB PO SCH ×2 (09:36→20:16)
[2020-07-21] MEDS: NSS + 20MEQ KCL 20 MEQ/1,000 ML BAG IV SCH ×2 (09:36→20:16)
[2020-07-21] MEDS: PIPERACILLIN/TAZOBACTAM 3.375 GM in DEXTROSE 5% 100 ML IV SCH ×2 (09:37→17:52)
[2020-07-21] MEDS: oxyCODONE/ACETAMINOPHEN 5mg/325mg TAB PO SCH ×5 (09:40→23:58)
[2020-07-21] MEDS ORDERED: HEPARIN SODIUM/DEXTROSE 25,000 UNITS/500 ML BAG IV SCH (09:45)
[2020-07-21] MEDS: POLYETHYLENE (MIRALAX) 17 GM PACK PO SCH (11:52)
[2020-07-21] MEDS: VANCOMYCIN HCL 1,000 MG in SODIUM CHLORIDE 0.9% 250 ML IV SCH ×2 (12:38→20:20)
--- NOTE | 2020-07-21 13:23 | Hospitalist Progress Note ---
Date of Service July 21, 2020 Assessment & Plan (1) Gross hematuria: Gross hematuria/bladder cancer/bilateral nephrostomy tubes- Temperature to 100.6 F Last chemo treatment was on Tuesday, 07/18 Follow urine culture and sensitivity Empiric vancomycin IV and Zosyn IV NSS + KCl 20 mEq at 100 mils per hour Continue diazepam, oxybutynin chloride, tamsulosin, tizanidine. Acetaminophen 650 mg p.o. every 6 hours as needed mild pain or fever Oxycodone/acetaminophen 5/325 p.o. every 4 hours as needed moderate pain CT abdomen pelvis without contrast to check for tube placement Contact cancer treatment center in [place] to coordinate care. Infectious disease consultation requested (2) Bladder cancer: See above (3) Nephrostomy tube bleed: Gross hematuria has resolved. Will follow. (4) Hypertension: Hold lisinopril and amlodipine Change metoprolol tartrate 25 mg p.o. daily to twice daily (5) Diabetes: Placed on Accu-Cheks before meals and at bedtime. Patient reportedly does not want insulin for coverage. Reportedly takes an [id number] remedy, which his significant other will bring for pharmacy to identify before administration DVT prophylaxis: Lovenox subcu since no evidence of gross hematuria Disposition: Eventual discharge to home Admission and Anticipated Discharge Date Admission Date: July 21, 2020 Subjective Alert and oriented. No distress. Currently afebrile. Nephrostomy tubes in place bilaterally. No gross hematuria at the time of my examination. He shorty santos is on vancomycin and Zosyn and IV fluids. Lisinopril and amlodipine are on hold but will be restarted if blood pressure remains stable. Infectious disease consultation requested. Abdominal CT scan report pending Review of Systems Review of Systems: All systems reviewed & are unremarkable except as noted in HPI & below Physical Exam Physical Exam: General-alert and oriented x3, no fevers, no chills HEENT-head atraumatic and normocephalic, TMs intact bilaterally, pupils equal and reactive to light, extraocular muscles intact Neck-no lymphadenopathy or thyromegaly, trachea midline Chest-clear to auscultation percussion. No rales wheezing or rhonchi Cardiac-regular rate and rhythm, normal S1 and S2, no murmurs Abdomen-normal bowel sounds, nontender, no hepatosplenomegaly. Bilateral nephrostomy tubes in place. No gross hematuria seen Extremities-no cyanosis, clubbing, or edema Neuro-cranial nerves II through XII intact, motor and sensory function within normal limits, strength symmetrical , no focal deficits Psych-normal affect, normal mood Results & Data Results & Data ([facility]) Vital Signs (Past 12 Hours) Vital Signs Temp Pulse Pulse Pulse Resp BP BP 07/21/20 11:27 37.1 C 89 16 116/71 07/21/20 07:43 37 C 93 H 95 H 18 143/88 H 07/21/20 05:05 93 H 16 134/80 07/21/20 03:33 38.1 C H 115 H 22 135/89 07/21/20 03:32 106 H 13 135/89 Pulse Ox 07/21/20 11:27 98 07/21/20 07:43 97 07/21/20 05:05 97 07/21/20 03:33 97 07/21/20 03:32 Laboratory Results 07/21/20 04:03 07/21/20 04:03 PG Care Time/CCT Total # of Minutes Spent Total Time Spent with Patient: Total time spent is greater than 50% in software development coordinator rdination of care (as documented) at patient's floor/unit and/or counseling patient: Coding Level of Care Code 23384 Subseq Hosp Care Lvl 3 Diagnoses Gross hematuria R31.0 Bladder cancer C67.9 Nephrostomy tube bleed T83.83XA Hypertension I10 Diabetes E11.9
[2020-07-21 13:33] LABS: Appearance Urine Clear (Clear); Bilirubin Urine Negative (Negative); Blood Urine 3+ (Negative); Color Urine Yellow; Epithelial Cell Urine Auto 0-5 /lpf (0-5); Glucose Urine UA Negative (Negative); Ketones Urine Negative (Negative); Leukocyte Esterase Urine 2+ (Negative); Nitrite Urine Positive (Negative); Protein Urine 2+ (Negative); RBC Urine Automated >30 /hpf (0-4); Specific Gravity Urine 1.017 (1.000-1.030); Urobilinogen Urine Negative (Negative); pH Urine 6.5 (4.5-7.5)
[2020-07-21 13:44] LABS: Bacteria Urine Automated 1+ (Negative)
[2020-07-21] MEDS ORDERED: MAGNESIUM CITRATE 296 ML/BTL PO STA (17:07)
[2020-07-21] MEDS: tiZANidine HCL 4 MG TABLET PO SCH (20:17)
[2020-07-22] MEDS ORDERED: HEPARIN 100 UNIT/ML 5ML FLUSH FLUSH PRN (00:34)
[2020-07-22] MEDS: PIPERACILLIN/TAZOBACTAM 3.375 GM in DEXTROSE 5% 100 ML IV SCH ×2 (02:04→09:27)
[2020-07-22] MEDS: NSS + 20MEQ KCL 20 MEQ/1,000 ML BAG IV SCH ×2 (03:33→13:57)
[2020-07-22] MEDS: oxyCODONE/ACETAMINOPHEN 5mg/325mg TAB PO SCH ×5 (03:33→20:19)
[2020-07-22] MEDS: VANCOMYCIN HCL 1,000 MG in SODIUM CHLORIDE 0.9% 250 ML IV SCH (03:34)
[2020-07-22 05:40] LABS: Basophils # (auto) 0.01 K/uL (0-0.2); Basophils % (auto) 0.1 %; Eosinophils # (auto) 0.02 K/uL (0-0.5); Eosinophils % (auto) 0.2 %; Hematocrit (blood only) 30.8 % (42-52); Hemoglobin 10.4 g/dL (14.0-18.0); Immature Granulocytes # (auto) 0.12 K/uL (0.00-0.02); Lymphocytes # (auto) 0.76 K/uL (1.2-3.4); Lymphocytes % (auto) 6.1 %; Mean Corpuscular Hemoglobin 29.1 pg (25-34); Mean Corpuscular Hgb Conc 33.8 g/dL (32-36); Mean Corpuscular Volume 86.3 fL (80-100); Mean Platelet Volume 8.7 fL (7.4-10.4); Monocytes # (auto) 0.08 K/uL (0.11-0.59); Monocytes % (auto) 0.6 %; Neutrophils # (auto) 11.53 K/uL (1.4-6.5); Platelet Count 183 K/uL (130-400); RDW Coefficient of Variation 14.3 % (11.5-14.5); RDW Standard Deviation 44.9 fL (36.4-46.3); Red Blood Count 3.57 M/uL (4.7-6.1); White Blood Count 12.52 K/uL (4.8-10.8)
[2020-07-22 06:11] LABS: Albumin Level 2.5 gm/dl (3.4-5.0); BUN Creatinine Ratio 14.5 (10-20); Calcium 7.8 mg/dl (8.5-10.1); Creatinine Clr Calc Pharmacy 105.9 ml/min; Est GFR (African American) 111.3; Potassium 3.7 mmol/L (3.5-5.1)
--- NOTE | 2020-07-22 06:11 | Electrocardiogram Report ---
Test Reason : Blood Pressure : / mmHG Vent. Rate : 117 BPM Atrial Rate : 117 BPM P-R Int : 134 ms QRS Dur : 088 ms QT Int : 324 ms P-R-T Axes : 074 076 016 degrees QTc Int : 451 ms Sinus tachycardia Possible Left atrial enlargement Nonspecific ST abnormality When compared with ECG of 10-MAY-2014 19:56, Nonspecific T wave abnormality has replaced inverted T waves in Inferior leads Nonspecific T wave abnormality no longer evident in Anterolateral leads Confirmed by Darnell Gomez ([id number]) on 07/22/2020 6:11:10 AM Referred By: REFERRED SELF Confirmed By:Darnell Gomez
[2020-07-22 06:14] LABS: Albumin Globulin Ratio 0.6 (0.9-2); Bilirubin,Total 0.6 mg/dl (0.2-1); Globulin 3.9 gm/dl (2.5-4.0); Total Protein 6.4 gm/dl (6.4-8.2)
[2020-07-22 06:50] LABS: Estimated Average Glucose 174 mg/dl; Hemoglobin A1C 7.7 % (4.5-5.6)
[2020-07-22] MEDS: TAMSULOSIN HCL 0.4 MG CAP PO SCH ×2 (08:24→20:20)
[2020-07-22] MEDS: POLYETHYLENE (MIRALAX) 17 GM PACK PO SCH (08:24)
[2020-07-22] MEDS: METOPROLOL TARTRATE 25 MG TAB PO SCH ×2 (08:24→20:19)
[2020-07-22] MEDS: OXYBUTYNIN CHLORIDE XL 5 MG TABCR PO SCH (08:24)
[2020-07-22] MEDS: ENOXAPARIN INJ 40 MG/0.4 ML SYR SQ SCH (08:24)
[2020-07-22] MEDS: ONDANSETRON 8MG OD TAB PO SCH ×2 (08:25→20:20)
[2020-07-22] MEDS: lisinopril 40 MG TAB PO SCH (10:28)
[2020-07-22] MEDS: amLODIPine BESYLATE 5 MG TAB PO SCH (10:28)
[2020-07-22] MEDS ORDERED: VANCOMYCIN TROUGH ONE (12:30)
--- NOTE | 2020-07-22 15:00 | Hospitalist Progress Note ---
Date of Service July 22, 2020 Assessment & Plan (1) Gross hematuria: Gross hematuria/bladder cancer/bilateral nephrostomy tubes-hematuria has resolved.Last chemo treatment was on Tuesday, 07/18. CT abdomen pelvis results noted. Infectious disease consultation requested (2) Bladder cancer: Last chemotherapy treatment was July 18. Bilateral nephrostomy tubes in place. (3) Nephrostomy tube bleed: Gross hematuria has resolved. Will follow. (4) Hypertension: lisinopril and amlodipine restarted today, July 22 Changed metoprolol tartrate 25 mg p.o. daily to twice daily (5) Diabetes: Placed on Accu-Cheks before meals and at bedtime. Patient reportedly does not want insulin for coverage. Reportedly takes an [id number]-ufi-lzztegg remedy, which his significant other will bring for pharmacy to identify before administration DVT prophylaxis: Lovenox subcu since no evidence of gross hematuria Disposition: Eventual discharge to home (6) Gram-negative bacteremia: Gram-negative's isolated in blood and urine from cultures done July 21. Antibiotics switched to cefepime. Will await identification and sensitivities. Infectious disease consultation pending Admission and Anticipated Discharge Date Admission Date: July 21, 2020 Subjective Alert and pleasant. No complaints. Gram-negative rods isolated in blood and urine on July 21 cultures. Identification pending. Vancomycin and Zosyn discontinued and he was switched to cefepime. Will await infectious disease consultation and recommendations. Review of Systems Review of Systems: All systems reviewed & are unremarkable except as noted in HPI & below Physical Exam Physical Exam: General-alert and oriented x3, no fevers, no chills HEENT-head atraumatic and normocephalic, TMs intact bilaterally, pupils equal and reactive to light, extraocular muscles intact Neck-no lymphadenopathy or thyromegaly, trachea midline Chest-clear to auscultation percussion. No rales wheezing or rhonchi Cardiac-regular rate and rhythm, normal S1 and S2, no murmurs Abdomen-normal bowel sounds, nontender, no hepatosplenomegaly. Bilateral flank n ephrostomy tubes in place. No hematuria noted Extremities-no cyanosis, clubbing, or edema Neuro-cranial nerves II through XII intact, motor and sensory function within normal limits, strength symmetrical, no focal deficits Psych-normal affect, normal mood Results & Data Results & Data ([facility]) Vital Signs (Past 12 Hours) Vital Signs Temp Pulse Pulse Resp BP BP Pulse Ox 07/22/20 11:11 36.9 C 81 20 128/80 99 07/22/20 07:42 36.8 C 92 H 18 143/78 H 100 07/22/20 07:37 82 07/22/20 05:27 77 07/22/20 05:06 36.6 C 91 H 115/69 97 Laboratory Results 07/22/20 05:26 07/22/20 05:26 PG Care Time/CCT Total # of Minutes Spent Total Time Spent with Patient: Total time spent is greater than 50% in coordination of care (as documented) at patient's floor/unit and/or counseling patient: Coding Level of Care Code 31108 Subseq Hosp Care Lvl 3 Diagnoses Gross hematuria R31.0 Bladder cancer C67.9 Nephrostomy tube bleed T83.83XA Hypertension I10 Diabetes E11.9 Gram-negative bacteremia R78.81
[2020-07-22] MEDS: CEFEPIME 2,000 MG in SYRINGE 0 ML IV SCH (18:25)
[2020-07-22] MEDS: tiZANidine HCL 4 MG TABLET PO SCH (20:20)
[2020-07-23] MEDS: oxyCODONE/ACETAMINOPHEN 5mg/325mg TAB PO SCH ×7 (00:01→23:59)
[2020-07-23] MEDS: NSS + 20MEQ KCL 20 MEQ/1,000 ML BAG IV SCH ×3 (00:02→20:01)
[2020-07-23] MEDS: CEFEPIME 2,000 MG in SYRINGE 0 ML IV SCH ×3 (02:44→18:09)
[2020-07-23 06:34] LABS: Eosinophils # (auto) 0.04 K/uL (0-0.5); Eosinophils % (auto) 0.5 %; Hematocrit (blood only) 30.4 % (42-52); Hemoglobin 10.3 g/dL (14.0-18.0); Immature Granulocytes # (auto) 0.05 K/uL (0.00-0.02); Immature Granulocytes % (auto) 0.6 %; Lymphocytes # (auto) 0.86 K/uL (1.2-3.4); Lymphocytes % (auto) 10.1 %; Mean Corpuscular Hemoglobin 28.9 pg (25-34); Mean Corpuscular Hgb Conc 33.9 g/dL (32-36); Mean Corpuscular Volume 85.4 fL (80-100); Mean Platelet Volume 9.3 fL (7.4-10.4); Monocytes % (auto) 1.2 %; Neutrophils # (auto) 7.44 K/uL (1.4-6.5); Neutrophils % (auto) 87.6 %; Platelet Count 230 K/uL (130-400); RDW Coefficient of Variation 14.4 % (11.5-14.5); RDW Standard Deviation 44.9 fL (36.4-46.3); Red Blood Count 3.56 M/uL (4.7-6.1); White Blood Count 8.49 K/uL (4.8-10.8)
[2020-07-23 07:05] LABS: Albumin Level 2.5 gm/dl (3.4-5.0); BUN Creatinine Ratio 15.2 (10-20); Calcium 8.3 mg/dl (8.5-10.1); Creatinine Clr Calc Pharmacy 115.1 ml/min; Est GFR (African American) 115.1; Est GFR (Non-African American) 99.4; Potassium 3.7 mmol/L (3.5-5.1)
[2020-07-23 07:07] LABS: Albumin Globulin Ratio 0.6 (0.9-2); Bilirubin,Total 0.4 mg/dl (0.2-1); Globulin 4.4 gm/dl (2.5-4.0); Total Protein 6.9 gm/dl (6.4-8.2)
[2020-07-23] MEDS: TAMSULOSIN HCL 0.4 MG CAP PO SCH ×2 (07:57→20:02)
[2020-07-23] MEDS: METOPROLOL TARTRATE 25 MG TAB PO SCH ×2 (07:57→20:02)
[2020-07-23] MEDS: ONDANSETRON 8MG OD TAB PO SCH ×2 (07:57→20:03)
[2020-07-23] MEDS: lisinopril 40 MG TAB PO SCH (07:57)
[2020-07-23] MEDS: amLODIPine BESYLATE 5 MG TAB PO SCH (07:58)
[2020-07-23] MEDS: POLYETHYLENE (MIRALAX) 17 GM PACK PO SCH (07:58)
[2020-07-23] MEDS: OXYBUTYNIN CHLORIDE XL 5 MG TABCR PO SCH (07:58)
[2020-07-23] MEDS: ENOXAPARIN INJ 40 MG/0.4 ML SYR SQ SCH (07:59)
[2020-07-23] MEDS ORDERED: BACITRACIN OINT 0.9 GM PKT EXT PRN (08:05)
[2020-07-23] MEDS: DAPTOmycin 325 MG in SYRINGE 0 ML IV SCH (10:11)
--- NOTE | 2020-07-23 14:09 | Hospitalist Progress Note ---
Date of Service July 23, 2020 Assessment & Plan (1) Complicated UTI (urinary tract infection): Pseudomonas, coagulase-negative staph, and a second gram-negative tello isolated in the urine. Previously on cefepime. Daptomycin added today, July 23. Bilateral nephrostomy tubes in place which are complicating the infection. Present on Admission?: Yes (2) Gram-negative bacteremia: Pseudomonas isolated in blood and urine from cultures done July 21. Antibiotics switched to cefepime. We will repeat blood cultures today, July 23. Infectious disease consultation pending (3) Gross hematuria: Gross hematuria/bladder cancer/bilateral nephrostomy tubes-hematuria has resolved. Last chemo treatment was on Tuesday, 07/18. CBC is stable . CT abdomen pelvis results noted. Infectious disease consultation requested (4) Bladder cancer: Last chemotherapy treatment was July 18. Bilateral nephrostomy tubes in place. (5) Nephrostomy tube bleed: Gross hematuria has resolved. Will follow. (6) Hypertension: lisinopril and amlodipine restarted July 22 Changed metoprolol tartrate 25 mg p.o. daily to twice daily (7) Diabetes: Placed on Accu-Cheks before meals and at bedtime. Patient reportedly does not want insulin for coverage. Reportedly takes an dnkx-owk-qjwcaum remedy, which his significant other will bring for pharmacy to identify before administration DVT prophylaxis: Lovenox subcu since no evidence of gross hematuria Disposition: Eventual discharge to home Admission and Anticipated Discharge Date Admission Date: July 21, 2020 Subjective Alert and pleasant. Blood cultures will be repeated today. Pseudomonas isolated in the blood and urine. A second gram-negative's identification is still pending from the urine. Coagulase-negative staph also isolated in the urine but not the blood. Daptomycin started today, July 23. Review of Systems Review of Systems: All systems reviewed & are unremarkable except as noted in HPI & below Physical Exam Physical Exam: General-alert and oriented x3, no fevers, no chills HEENT-head atraumatic and normocephalic, TMs intact bilaterally, pupils equal and reactive to light, extraocular muscles intact Neck-no lymphadenopathy or thyromegaly, trachea midline Chest-clear to auscultation percussion. No rales wheezing or rhonchi Cardiac-regular rate and rhythm, normal S1 and S2, no murmurs Abdomen-normal bowel sounds, nontender, no hepatosplenomegaly. Bilateral flank nephrostomy tubes. No hematuria Extremities-no cyanosis, clubbing, or edema Neuro-cranial nerves II through XII intact, motor and sensory function within normal limits, strength symmetrical 5/5, no focal deficits Psych-normal affect, normal mood Results & Data Results & Data ([facility]) Vital Signs (Past 12 Hours) Vital Signs Temp Pulse Resp BP BP Pulse Ox 07/23/20 12:06 37.2 C 77 16 133/87 98 07/23/20 08:01 37.4 C 92 H 20 139/88 98 07/23/20 02:44 37.1 C 92 H 16 134/82 98 Laboratory Results 07/23/20 05:58 07/23/20 05:58 PG Care Time/CCT Total # of Minutes Spent Total Time Spent with Patient: Total time spent is greater than 50% in coordination of care (as documented) at patient's floor/unit and/or counseling patient: Coding Level of Care Code 18248 Subseq Hosp Care Lvl 3 Diagnoses Complicated UTI (urinary tract infection) N39.0 Gram-negative bacteremia R78.81 Gross hematuria R31.0 Bladder cancer C67.9 Nephrostomy tube bleed T83.83XA Hypertension I10 Diabetes E11.9
[2020-07-23] MEDS ORDERED: MoRPHine SULFATE 2 MG/ML CARP IV PRN (16:36)
[2020-07-23] MEDS: tiZANidine HCL 4 MG TABLET PO SCH (20:03)
[2020-07-24] MEDS: oxyCODONE/ACETAMINOPHEN 5mg/325mg TAB PO SCH ×4 (01:45→10:18)
[2020-07-24] MEDS: CEFEPIME 2,000 MG in SYRINGE 0 ML IV SCH ×2 (01:46→10:18)
[2020-07-24] MEDS: NSS + 20MEQ KCL 20 MEQ/1,000 ML BAG IV SCH (05:33)
[2020-07-24] MEDS: ENOXAPARIN INJ 40 MG/0.4 ML SYR SQ SCH (10:08)
[2020-07-24] MEDS: POLYETHYLENE (MIRALAX) 17 GM PACK PO SCH (10:08)
[2020-07-24] MEDS: amLODIPine BESYLATE 5 MG TAB PO SCH (10:09)
[2020-07-24] MEDS: ONDANSETRON 8MG OD TAB PO SCH (10:09)
[2020-07-24] MEDS: OXYBUTYNIN CHLORIDE XL 5 MG TABCR PO SCH (10:10)
[2020-07-24] MEDS: lisinopril 40 MG TAB PO SCH (10:10)
[2020-07-24] MEDS: TAMSULOSIN HCL 0.4 MG CAP PO SCH (10:10)
[2020-07-24] MEDS: METOPROLOL TARTRATE 25 MG TAB PO SCH (10:10)
[2020-07-24] MEDS: DAPTOmycin 325 MG in SYRINGE 0 ML IV SCH (10:18)
[2020-07-24 10:48] LABS: Basophils # (auto) 0.01 K/uL (0-0.2); Basophils % (auto) 0.2 %; Eosinophils # (auto) 0.03 K/uL (0-0.5); Eosinophils % (auto) 0.5 %; Hemoglobin 10.6 g/dL (14.0-18.0); Immature Granulocytes # (auto) 0.01 K/uL (0.00-0.02); Immature Granulocytes % (auto) 0.2 %; Lymphocytes % (auto) 17.6 %; Mean Corpuscular Hemoglobin 29.4 pg (25-34); Mean Corpuscular Hgb Conc 35.3 g/dL (32-36); Mean Corpuscular Volume 83.1 fL (80-100); Mean Platelet Volume 8.6 fL (7.4-10.4); Monocytes # (auto) 0.16 K/uL (0.11-0.59); Monocytes % (auto) 2.6 %; Neutrophils # (auto) 4.94 K/uL (1.4-6.5); Neutrophils % (auto) 78.9 %; Platelet Count 224 K/uL (130-400); RDW Coefficient of Variation 14.2 % (11.5-14.5); Red Blood Count 3.61 M/uL (4.7-6.1); White Blood Count 6.25 K/uL (4.8-10.8)
[2020-07-24 11:20] LABS: Albumin Level 2.7 gm/dl (3.4-5.0); BUN Creatinine Ratio 12.9 (10-20); Calcium 9.3 mg/dl (8.5-10.1); Creatinine Clr Calc Pharmacy 112.3 ml/min; Est GFR (Non-African American) 98.4; Potassium 3.6 mmol/L (3.5-5.1)
[2020-07-24 11:23] LABS: Albumin Globulin Ratio 0.5 (0.9-2); Bilirubin,Total 0.4 mg/dl (0.2-1); Total Protein 7.7 gm/dl (6.4-8.2)
--- NOTE | 2020-07-24 13:04 | Urology Consultation ---
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 Patient is managed by a cancer center in the [place] area. The majority of his management has been handled through them. He has seen a urologist in the region who had done the initial resection and also intravesical therapy. Patient had obstruction due to tumor and required resection over the ureteral openings. Developed issues with drainage and had bilateral nephrostomy tubes placed. According to patient these were set to be changed in the coming week. Patient is midcycle of his chemotherapy. He has been tolerating thus far. Has been working on hydration diet and management of symptoms. Patient's ill feelings, fever, weakness, urinary complaints have all drastically improved with antibiotics. Cultures are showing a Pseudomonas species. Discussed at length different options. CT imaging was reviewed interpreted by myself agree with assessment that both neph tubes do appear in good position with mild ureteral dilation down to the bladder. Bladder is thickened and irritated likely from resection and bladder cancer. Patient does have a fluid collection likely a perinephric hematoma from nephrostomy tube placement however it does not appear to contain gas or other signs of abscess formation. Patient's blood counts have been stable. Patient is drastically improving from infection with IV antibiotics. There is been discussion about possibly changing all indwelling devices and catheters due to the bacteremia. At this point with patient is drastically improving clinical picture and limited options for nephrostomy tube exchange would be reasonable to maintain current nephrostomy tubes as they do appear to be draining and in good position. After an appropriate course of antibiotics it would be reasonable to exchange the nephrostomy tubes in a more controlled environment and this can be handled and arranged by his cancer care team. If patient develops severe fevers signs of obstruction considerable bleeding or stops responding to antibiotics would be reasonable to consider exchange however patient would likely need to be transferred as nephrostomy tube placement or exchanges are not available with [facility] interventional radiology. Patient's port is still functional and is accessed. There has been discussion of possibly exchanging this as well. We will need to coordinate and see if this is felt to be necessary. Otherwise agree with supportive care. Did discuss some of patient's concerns about his bladder cancer including issues related to his nutrition and hydration as well as the possibility of exchanging to internalize stents for the obstructive issues from the tumor. Patient is highly motivated to get back on track for his chemo regimen. He is also a longtime smoker and is working to stop. Patient's complicated medical and surgical history is reviewed and summarized above. All imaging was reviewed interpreted by myself. Discussed with hospitalist after seeing patient different options. They were going to contact his medical team/oncology team to discuss different options including possible transfer if felt necessary to exchange tubes. We will continue to monitor. Can call if patient develops sudden changes including signs of sepsis, fever chills, or other major changes. We will also have to wait sensitivities. If sensitive to fluoroquinolones would be reasonable to utilize oral medication for management (2) Complicated UTI (urinary tract infection): (3) Gram-negative bacteremia: (4) Nephrostomy tube bleed: History of Present Illness Attending Physician: Sabas Villalpando History of Present Illness New consultation for patient with UTI/Pyelo, discomfort, and ill feelings. Patient has a very complicated urologic history with a muscle invasive bladder cancer undergoing chemotherapy at an outlying facility/cancer center. Patient has bilateral nephrostomy tubes due to obstruction secondary to bladder tumor. He is undergone multiple resections of the bladder tumor. He also has had intravesical therapy with gemcitabine. He does not remember exactly what his current neoadjuvant chemotherapy regimen is however he thinks it may be gemcitabinecis-gulkana. He states he is midcycle and had only few more doses before he would be undergoing his "major surgery". Patient developed ill feelings as well as sudden onset of pain into flank going down and radiating into groin and back in waves comes and goes. Discussed and reviewed patient's family history for any history of issues, infections, and disease. Also, discussed patient's medical/surgery history especially related to any history of urinary issues or stone disease. A large amount of records from outlying facilities in the area as well as in the [place] area where he is undergoing his cancer care were reviewed sent interpreted and discussed with patient. Patient was admitted and is undergoing observation with broad spectrum IV antibiotics. Patient appears to have Pseudomonas in blood cultures. He does have bilateral nephrostomy tubes as well as a chemo infusion port. He was seen with telemedicine with infectious disease. Does have a family history of colon cancer in his father and kidney issues in his mother. Patient has a complicated history of cardiovascular disease as well. Patient has been improving while on an IV antibiotics and labs and vitals have drastically improved. He is highly motivated to go home Allergies Allergy/AdvReac Type Severity Reaction Status Date / Time Iodinated Contrast Media Allergy Severe Unknown Verified 07/21/20 05:23 Home Medications Medication Instructions Recorded Confirmed Type amlodipine 10 mg PO DAILY 07/21/20 07/21/20 History diazepam 2.5 mg VA BID PRN 07/21/20 07/21/20 History lisinopril 40 mg PO DAILY 07/21/20 07/21/20 History metoprolol tartrate 25 mg PO DAILY 07/21/20 07/21/20 History ondansetron HCl 8 mg PO BID 07/21/20 07/21/20 History oxybutynin chloride 10 mg PO DAILY 07/21/20 07/21/20 History oxycodone-acetaminophen 1 tab PO Q4 07/21/20 07/21/20 History tamsulosin 0.4 mg PO BID 07/21/20 07/21/20 History tizanidine 4 mg PO HS 07/21/20 07/21/20 History Patient History Social History Smoking Status: Light tobacco smoker Second Hand Exposure: No; Hx Alcohol Use: No Hx Substance Use: No Preferred Language: Gibraltarian Communication Ability: Effective Building Superintendent Required: No Beliefs That Will Affect Care: None marital status: Current Living Situation: Spouse How many Children do You have: 3 Feels Safe at Home: Yes Assistive Devices: None Review of Systems Review of Systems: All systems reviewed & are unremarkable except as noted in HPI & below Physical Exam Physical Exam: General: Alert and oriented x 3 in no acute distress. Patient is well nourished and well kept. HEENT: Normocephalic Atraumatic. Inspection normal. Cranial Nerves 2-12 Grossly intact. Nares are clear. Neck is supple. Normal inspection of face. Normal inspection of neck. Neurologic: No deficits on inspection. Baseline for motor function and sensory. Psychologic: Normal affect. Respiratory: Nonlabored. No use of accessory muscles. No tachypnea or dyspnea. Cardiovascular: No tachycardia Skin: [place] and Dry. No rashes or visible lesions. Extremities: Moving without issues. No motor deficits on inspection Lymphatics: No edema Abdomen: Soft Non-distended. No acites. No rebound or guarding. Back: Bilateral nephrostomy tubes draining clear yellow urine Results & Data ([facility]) Vital Signs (Past 12 Hours) Vital Signs Temp Pulse Resp BP Pulse Ox 07/24/20 08:04 37.3 C 93 H 20 166/98 H 100 07/24/20 03:19 37 C 84 17 139/83 94 PG Care Time/CCT Total # of Minutes Spent Total Time Spent with Patient: Total time spent is greater than 50% in coordination of care (as documented) at patient's floor/unit and/or counseling patient: Coding Level of Care Code 54530 Inpt Consult Level 5 Diagnoses Bladder cancer C67.9 Complicated UTI (urinary tract infection) N39.0 Gram-negative bacteremia R78.81 Nephrostomy tube bleed T83.83XA
--- NOTE | 2020-07-29 09:52 | Discharge Summary ---
Date of Service July 24, 2020 Admission HPI Per Admitting Provider The patient is a 54-year-old male with a past medical history including bladder cancer status post resection with bilateral nephrostomy tubes on chemo, hypertension, diabetes mellitus, and bladder spasm. He has undergone treatment at the cancer treatment center in [place], and communication will be coordinated with them. He presents with symptoms as noted above. She reports that he is always had right sided pain, which is where his bladder lesion was, and reports that this pain is worse than usual. She reports that the last 2 times he urinated yesterday he had gross blood, which has been present early on before beginning chemotherapy, but this is the first time he has had gross blood since being on chemotherapy and post procedure. His last chemotherapy was 3 days ago. Principal Diagnosis complicated UTI Discharge Exam General-alert and oriented x3, no fevers, no chills HEENT-head atraumatic and normocephalic, TMs intact bilaterally, pupils equal and reactive to light, extraocular muscles intact Neck-no lymphadenopathy or thyromegaly, trachea midline Chest-clear to auscultation percussion. No rales wheezing or rhonchi Cardiac-regular rate and rhythm, normal S1 and S2, no murmurs Abdomen-normal bowel sounds, nontender, no hepatosplenomegaly. Bilateral flank nephrostomy tubes. No hematuria Extremities-no cyanosis, clubbing, or edema Neuro-cranial nerves II through XII intact, motor and sensory function within normal limits, strength symmetrical 5/5, no focal deficits Psych-normal affect, normal mood Discharge Data Allergies Allergy/AdvReac Type Severity Reaction Status Date / Time Iodinated Contrast Media Allergy Severe Unknown Verified 07/21/20 05:23 Consultations 07/21/20 05:24 ED Decision to Admit Stat 07/21/20 07:24 Consult Case Management - Discharge Planning Routine 07/21/20 13:20 Consult Infectious Diseases Routine 07/24/20 07:02 Consult Urology Routine Ordered Studies 07/21/20 06:15 CT abd pelvis wo con Stat Hospital Course (1) Complicated UTI (urinary tract infection): Pseudomonas, coagulase-negative staph, and a second gram-negative tello isolated in the urine. Previously on cefepime. Daptomycin added today, July 23. Bilateral nephrostomy tubes in place which are complicating the infection. After an appropriate course of antibiotics it would be reasonable to exchange the nephrostomy tubes in a more controlled environment and this can be handled and arranged by his cancer care team. If patient develops severe fevers signs of obstruction considerable bleeding or stops responding to antibiotics would be reasonable to consider exchange however patient would likely need to be transferred as nephrostomy tube placement or exchanges are not available with [facility] interventional radiology. After discussing with patient, multiple options: including transfer to tertiary center. Patient opted to go home on oral antibiotics and followup within 1 week with his Urologist. He may need A port exchanged, however possiblity that given it is pseudomonas, he may be able to muñoz the port. (2) Gram-negative bacteremia: Pseudomonas isolated in blood and urine from cultures done July 21. Antibiotics switched to cefepime. We will repeat blood cultures today, July 23. Infectious disease consultation pending (3) Gross hematuria: Gross hematuria/bladder cancer/bilateral nephrostomy tubes-hematuria has resolved. Last chemo treatment was on Tuesday, 07/18. CBC is stable . CT abdomen pelvis results noted. Infectious disease consultation requested (4) Bladder cancer: Last chemotherapy treatment was July 18. Bilateral nephrostomy tubes in place. (5) Nephrostomy tube bleed: Gross hematuria has resolved. Will follow. (6) Hypertension: lisinopril and amlodipine restarted July 22 Changed metoprolol tartrate 25 mg p.o. daily to twice daily (7) Diabetes: Placed on Accu-Cheks before meals and at bedtime. Patient reportedly does not want insulin for coverage. Reportedly takes an [id number] remedy, which his significant other will bring for pharmacy to identify before administration DVT prophylaxis: Lovenox subcu since no evidence of gross hematuria Total Time Total Time Spent Total Time Spent (In Minutes): 32 Total Time Includes: Examination of the Patient, Discharge Planning and Medication Reconciliation Discharge Plan Discharge Items Patient Disposition: Home - Self-Care Reason For Visit: SEPSIS, UTI, BLADDER CA, GROSS HEMATURIA Discharge Diagnosis: SESPSIS Activity: Resume your previous activity Non-emergency contact: Primary Care Provider Call non-emergency contact if: you have any medication questions Follow-up/Referrals: PCP,NO [Primary Care Provider] - Diet: Carb Consistent or DM2 and Heart Healthy Addtl Attending Provider Instructions: Recommend to continue antibiotics for next week. Please see urology within the time period of your antibiotics. First dose will be tonight at 6pm. May require a-port to be removed. Pending Studies at Discharge: No Stand-Alone Forms: [facility], Smoking Cessation Medications and DC Order Prescriptions: New levofloxacin 750 mg tablet 750 mg PO DAILY 7 Days Qty: 7 RF: 0 Continued tizanidine 4 mg tablet 4 mg PO HS RF: 0 ondansetron HCl 8 mg tablet 8 mg PO BID RF: 0 oxycodone-acetaminophen 5-325 mg tablet 1 tab PO Q4 RF: 0 diazepam 2.5 mg kit 2.5 mg [place] BID PRN (Reason: Muscle Spasm) RF: 0 lisinopril 40 mg tablet 40 mg PO DAILY RF: 0 oxybutynin chloride 10 mg tablet extended release 24hr 10 mg PO DAILY RF: 0 tamsulosin 0.4 mg capsule 0.4 mg PO BID RF: 0 amlodipine 10 mg tablet 10 mg PO DAILY RF: 0 metoprolol tartrate 50 mg tablet 25 mg PO DAILY RF: 0 Discharge Orders: Discharge Order (Routine); Ordered 07/24/20 Ordered By: Sabas Barnes/Other Patient Handouts: Managing Type 2 Diabetes, Managing Diabetes: The A1C Test Admission Data Admit Date/Time: 07/21/20 06:04 Attending Provider: Sabas Villalpando Admit Provider: Dmitri Abel Primary Care Provider: PCP,NO Other Providers: Dmitri Abel ; Macario Hargrove ; Paty Glez ; Femi Welch I. ; Nikhil Rinaldi II ; Lorraine Alford ; Norm Hill ; George Pruett ; Davon Alba ; Leon Joshua ; Luz Maria Alanis ; Delbert Dupree ; Marci Kang ; Rach Arevalo ; Bobbi Brenner ; Jordin Larose ; Kari Tamayo ; Belle Antoine Other Interventions: Discharge Summary Assessment (RN) Last Done: 07/24/20 14:11 Coding Level of Care Code D/C Day Management >30 mins Diagnoses Complicated UTI (urinary tract infection) N39.0 Gram-negative bacteremia R78.81 Gross hematuria R31.0 Bladder cancer C67.9 Nephrostomy tube bleed T83.83XA Hypertension I10 Diabetes E11.9
== END 2020-07-24 15:05 | disposition home or self-care (01) | DRG 696 ==
LOC: ED 03:28 → 2W 06:04 → SUATTDRO 06:04 → 2W 06:34